=== PATIENT | female | born 1975 | race Caucasian/White ===

== ENCOUNTER 2018-06-22 12:38 | Emergency (ER) | payer OTHER ==
[~2018-06-22] VITALS: Ht 162.6 cm; Wt 68.0 kg
[2018-06-22] MEDS ORDERED: MEDROLPACK PO (15:18)
[2018-06-22] MEDS ORDERED: BENADRYL25 MG PO (15:18)
== END 2018-06-22 15:22 | disposition home or self-care (01) ==
LOC: ER 12:38
DX: R21 Rash and other nonspecific skin eruption (principal)

== ENCOUNTER 2020-05-29 17:59 | Emergency (ER) | payer OTHER ==
[~2020-05-29] VITALS: Ht 162.6 cm; Wt 64.4 kg
[~2020-05-29 17:59] MED LIST: BENADRYL25 MG PO; MEDROLPACK PO
== END 2020-05-29 21:19 | disposition home or self-care (01) ==
LOC: ER 17:59
DX: S00.01XA Abrasion of scalp, initial encounter (principal); W22.8XXA Striking against or struck by other objects, initial encounter; Y93.89 Activity, other specified; Y92.69 Other specified industrial and construction area as the place of occurrence of the external cause; Y99.8 Other external cause status